=== PATIENT | male | born 1965 | race Caucasian/White ===

== ENCOUNTER 2018-10-13 16:53 | Emergency (ER) | payer OTHER ==
--- NOTE | 2018-10-13 18:36 | EDM.PDOC ---
ED HPI GENERAL MEDICAL PROBLEM - General Chief Complaint: Upper Extremity Injury/Pain Stated Complaint: L SHOULDER INJURY Time Seen by Provider: 10/13/18 17:54 Source of Information: Reports: Patient History Limitations: Reports: No Limitations - History of Present Illness INITIAL COMMENTS - FREE TEXT/NARRATIVE: Patient is a 53-year-old male presents ED complaining of left anterior shoulder and clavicle pain. Patient states during the first snowfall in August he slipped and caught himself on an outstretched arm. Patient states since then he has been complaining of pain with decreased rom. He has no history of previous shoulder injury. No swelling, bruising, bony abnormalities noted since he fall. He continues to work as usual with limitations secondary to pain to left shoulder. He has not seen any medical provider since the injury. Left Arm Pain Score (Numeric/FACES): 5 - Related Data Allergies Allergy/AdvReac Type Severity Reaction Status Date / Time No Known Allergies Allergy Verified 10/13/18 17:32 Home Meds: Home Meds . [No Known Home Meds] 10/13/18 [History] Past Medical History Musculoskeletal History: Reports: Other (See Below) Other Musculoskeletal History: left foot surgery fractured with screws Review of Systems - Review of Systems Review Of Systems: ROS reveals no pertinent complaints other than HPI. ED EXAM, GENERAL - Physical Exam Exam: See Below Exam Limited By: No Limitations General Appearance: Alert, WD/WN, No Apparent Distress Ears: Hearing Grossly Normal Nose: Normal Inspection Throat/Mouth: Normal Inspection, Normal Oropharynx, Normal Voice, No Airway Compromise Head: Atraumatic, Normocephalic Neck: Normal Inspection, Supple, Non-Tender, Full Range of Motion Respiratory/Chest: No Respiratory Distress, Lungs Clear, Normal Breath Sounds, No Accessory Muscle Use, Other (Slight discomfort noted to the distal aspect of the left clavicle with no bony abnormalities, bruising, swelling present. No pain along the ac joint.) Cardiovascular: Normal Peripheral Pulses, Regular Rate, Rhythm, No Murmur Peripheral Pulses: 2+: Radial (L) Extremities: Normal Inspection, No Pedal Edema, Normal Capillary Refill, Other Neurological: Alert, Oriented, CN II-XII Intact, Normal Cognition, No Motor/ Sensory Deficits Psychiatric: Normal Affect, Normal Mood Skin Exam: Warm, Dry, Intact Front/Back Body Diagram: 1 - Tenderness to the anterior aspect of the shoulder. Decreased active and passive range of motion. Patient has difficulty with lifting his arm above his shoulder and placing behind his back. Decreased strength noted to the left shoulder in comparison to the right. Increasing pain with strength testing noted. Empty the can test is positive. Course - Vital Signs Last Recorded V/S: Last Vital Signs Temp 98.2 F 10/13/18 17:24 Pulse 88 10/13/18 17:24 Resp 18 10/13/18 17:24 BP 140/88 10/13/18 17:24 Pulse Ox 96 10/13/18 17:24 - Orders/Labs/Meds Orders: Active Orders 24 hr Category Date Time Status Clavicle Lt [CR] Stat Exams 10/13/18 17:52 Taken Shoulder Comp Lt [CR] Stat Exams 10/13/18 17:52 Taken - Re-Assessments/Exams Free Text/Narrative Re-Assessment/Exam: X-ray of the left shoulder and clavicle be obtained. Reviewed with Dr. Larson with no acute bony abnormalities noted. Suspect patient has torn his rotator cuff. He will require follow-up with a orthopedic surgeon for further evaluation. Departure - Departure Time of Disposition: 18:36 Disposition: DC/Tfer to [facility] 03 Condition: Good Clinical Impression: Rotator cuff tear, left Qualifiers: Rotator cuff tear extent: unspecified tear extent Qualified Code(s): M75.102 - Unspecified rotator cuff tear or rupture of left shoulder, not specified as traumatic Left shoulder pain Qualifiers: Chronicity: unspecified Qualified Code(s): M25.512 - Pain in left shoulder - Discharge Information Instructions: Shoulder Pain, Shoulder Range of Motion Exercises Referrals: Andrea Rodriguez MD [Physician] - Forms: ED Department Discharge Additional Instructions: As discussed I suspect you have torn your rotator cuff. Please refrain from any activities that cause worsening discomfort. Call and make an appointment with Dr. Rodriguez Orthopedic surgeon to be further evaluated. Take Tylenol and ibuprofen in alternating fashion for discomfort. - My Orders Last 24 Hours: My Active Orders 10/13/18 17:52 Clavicle Lt [CR] Stat Shoulder Comp Lt [CR] Stat - Assessment/Plan Last 24 Hours: My Active Orders 10/13/18 17:52 Clavicle Lt [CR] Stat Shoulder Comp Lt [CR] Stat
--- NOTE | 2018-10-14 08:56 | CR ---
Left clavicle: Two views of the left clavicle were obtained. Comparison: No previous study. No fracture or other bony abnormality is seen. Impression: 1. Unremarkable two-view left clavicle exam. Diagnostic code #1
--- NOTE | 2018-10-14 08:56 | CR ---
Left shoulder: Three views of the left shoulder were obtained. Glenohumeral joint and acromioclavicular joint appear within normal limits. No acute fracture or dislocation is seen. No abnormal soft tissue calcifications are seen. Impression: 1. No abnormality is appreciated on three-view left shoulder exam. Diagnostic code #1
== END 2018-10-13 18:52 ==
LOC: JD.ED 16:53
DX: M75.102 Unspecified rotator cuff tear or rupture of left shoulder, not specified as traumatic (principal); X50.1XXA Overexertion from prolonged static or awkward postures, initial encounter
CPT/HCPCS: 73000-26-LT; 73000-LT; 73030-26-LT; 73030-LT; 99283